=== PATIENT | female | born 1985 | race Caucasian/White ===

== ENCOUNTER 2021-10-28 05:44 | Emergency (ER) | payer MEDICAID ==
[~2021-10-28] VITALS: Ht 170.2 cm; Wt 77.1 kg
--- NOTE | 2021-10-28 05:59 | NUR ---
Patient to ER bed 7 to gown for evaluation. Side rails up. Report given to MYLES CALZADA(AKOSUA).
[2021-10-28 06:00] VITALS: BP_SYST 139
--- NOTE | 2021-10-28 06:07 | NUR ---
-ELSI Brannon. Pt brought self in from home due to R shoulder pain that radiates down to arm. States she has had chronic shoulder pain x1 year, but pain has progressed the past 3 weeks. Denies any injury/trauma to shoulder. Arrived to ED in no acute distress. Breathing adequately on RA.
[2021-10-28] MEDS ORDERED: NAPR-688 PO (06:17)
[2021-10-28] MEDS ORDERED: HYDR-3917 PO (06:17)
--- NOTE | 2021-10-28 06:20 | NUR ---
Pt given Toradol 60 mg via IM and stated her vision went blurry for a few seconds shortly after. Pt was given iced water and placed in position of comfort in bed. VS taken and WNL. Pt was advised to stay a few min longer for observation. Appears in no acute distress. Resting comfortably in bed.
--- NOTE | 2021-10-28 06:20 | NUR ---
ER at bedside examining patient.
[2021-10-28] MEDS ORDERED: KETOROLAC TROMETHAMINE 30 MG VIAL ONE (06:21)
[2021-10-28] MEDS ORDERED: KETOROLAC TROMETHAMINE 60 MG/2 ML VIAL IM ONE (06:30)
--- NOTE | 2021-10-28 06:42 | NUR ---
Pt condition reassessed and denies any blurry vision, lightheadedness/dizziness. Pt was asked if she had someone to drive her home, but states she is fine now and feels safe driving self home. VS reassessed and WNL. Appears in no acute distress. Steady gait noted. Patient given written and verbal discharge instructions and verbalizes understanding. ER MD Michaels discussed with patient the results and treatment provided. Patient in stable condition. ID arm band removed. Rx of [place] and Naproxen sent to pharmacy of choice. Patient educated on pain management and to follow up with PMD. Pain Scale 1/10 Opportunity for questions provided and answered. Medication side effect fact sheet provided.
== END 2021-10-28 06:34 | disposition home or self-care (01) ==
LOC: SED 05:44
DX: M75.01 Adhesive capsulitis of right shoulder (principal); R11.0 Nausea; R19.7 Diarrhea, unspecified; E11.9 Type 2 diabetes mellitus without complications; Z88.0 Allergy status to penicillin
CPT/HCPCS: 96372; 99283; J1885

== ENCOUNTER 2022-11-17 08:07 | Emergency (ER) | payer MEDICAID ==
[~2022-11-17] VITALS: Ht 165.1 cm; Wt 63.5 kg
[~2022-11-17 08:07] MED LIST: HYDR-3917 PO; NAPR-688 PO
--- NOTE | 2022-11-17 08:18 | NUR ---
Pt BIB self. C/O chest tightness. pt states to have started new anxiety medication. Pt states slight SOB. Pt speaking full sentences without labored breathing. Pain 01/25. Pt states HX of hyperthyriodism and DM1. VSS. skin dry and intact. Pt in bed with side rails up.
--- NOTE | 2022-11-17 08:20 | NUR ---
CECIL Oliver performed EKG and glucose check. Glucose 131.
[2022-11-17 08:28] VITALS: BP_SYST 118
--- NOTE | 2022-11-17 08:29 | NUR ---
Pt father Don at bedside.
--- NOTE | 2022-11-17 08:42 | NUR ---
ER at bedside examining patient.
[2022-11-17] MEDS ORDERED: LORazepam 1 MG TABLET PO ONE (08:45)
--- NOTE | 2022-11-17 08:51 | NUR ---
Radiology at bedside with Pt.
[2022-11-17 09:15] LABS: BASOPHILS # (AUTO) 0.1 K/uL (0.0-0.2); BASOPHILS % (AUTO) 0.9 % (0.0-2.0); EOSINOPHILS # (AUTO) 0.1 K/uL (0.0-0.4); EOSINOPHILS % (AUTO) 1.4 % (0.0-4.0); HEMATOCRIT 39.8 % (36-48); HEMOGLOBIN 13.6 g/dL (12.0-16.0); LYMPHOCYTES # (AUTO) 1.3 K/uL (1.0-5.5); LYMPHOCYTES % (AUTO) 18.9 % (20.5-51.5); MEAN CORPUSCULAR HEMOGLOBIN 30 pg (27-31); MEAN CORPUSCULAR HGB CONC 34 % (32-36); MEAN CORPUSCULAR VOLUME 89 fL (79.0-98.0); MONOCYTES # (AUTO) 0.3 K/uL (0.0-1.0); MONOCYTES % (AUTO) 4.7 % (1.7-9.3); NEUTROPHILS % (AUTO) 74.1 % (40.0-70.0); PLATELET COUNT (AUTO) 181 K/uL (130-430); RED BLOOD CELL COUNT(AUTO) 4.46 MIL/uL (4.2-6.2); RED CELL DISTRIBUTION WIDTH 13.1 % (9.0-15.0); WHITE BLOOD COUNT (AUTO) 6.7 K/uL (4.8-10.8)
[2022-11-17 09:21] LABS: ANION GAP 6 (5-15); CALCIUM 8.4 mg/dL (8.4-11.0); CHLORIDE 104 mmol/L (98-107); CREATININE 0.87 mg/dL (0.55-1.30); GFR AFRICAN AMERICAN 94 mL/min (>90); GLUCOSE 141 mg/dL (70-99); UREA NITROGEN, BLOOD 10 mg/dL (8-21)
[2022-11-17 09:29] LABS: ALANINE AMINOTRANSFERASE 15 U/L (12-78); ALBUMIN 3.9 g/dL (3.4-4.8); ASPARTATE AMINOTRANSFERASE 13 U/L (10-37); TOTAL BILIRUBIN 0.4 mg/dL (0.0-1.0)
[2022-11-17] MEDS ORDERED: LORA-259 PO (09:37)
--- NOTE | 2022-11-17 09:45 | NUR ---
Patient given written and verbal discharge instructions and verbalizes understanding. ER MD discussed with patient the results and treatment provided. Patient in stable condition. ID arm band removed. Rx of LORAZAPAM given. Patient educated on pain management and to follow up with PMD. Opportunity for questions provided and answered. Medication side effect fact sheet provided.
[2022-11-17 09:51] VITALS: BP_SYST 114
== END 2022-11-17 09:45 | disposition home or self-care (01) ==
LOC: SED 08:07
DX: R07.9 Chest pain, unspecified (principal); F41.9 Anxiety disorder, unspecified; T50.995A Adverse effect of other drugs, medicaments and biological substances, initial encounter; R00.2 Palpitations; E11.9 Type 2 diabetes mellitus without complications; Z88.0 Allergy status to penicillin; Z79.899 Other long term (current) drug therapy
CPT/HCPCS: 36415; 71045; 80053; 83880; 84484; 85025; 93005; 99285

== ENCOUNTER 2022-12-28 06:42 | Emergency (ER) | payer MEDICAID ==
[~2022-12-28] VITALS: Ht 170.2 cm; Wt 72.6 kg
[~2022-12-28 06:42] MED LIST changes: +LORA-259 PO
[2022-12-28 06:57] VITALS: BP_SYST 117
[2022-12-28 07:24] LABS: BASOPHILS % (AUTO) 0.8 % (0.0-2.0); EOSINOPHILS # (AUTO) 0.1 K/uL (0.0-0.4); EOSINOPHILS % (AUTO) 1.4 % (0.0-4.0); HEMATOCRIT 39.8 % (36-48); HEMOGLOBIN 13.4 g/dL (12.0-16.0); LYMPHOCYTES # (AUTO) 1.1 K/uL (1.0-5.5); MEAN CORPUSCULAR HEMOGLOBIN 31 pg (27-31); MEAN CORPUSCULAR HGB CONC 34 % (32-36); MEAN CORPUSCULAR VOLUME 90 fL (79.0-98.0); MONOCYTES # (AUTO) 0.3 K/uL (0.0-1.0); MONOCYTES % (AUTO) 5.6 % (1.7-9.3); NEUTROPHILS # (AUTO) 4.3 K/uL (1.8-7.7); NEUTROPHILS % (AUTO) 73.2 % (40.0-70.0); PLATELET COUNT (AUTO) 180 K/uL (130-430); RED BLOOD CELL COUNT(AUTO) 4.41 MIL/uL (4.2-6.2); WHITE BLOOD COUNT (AUTO) 5.9 K/uL (4.8-10.8)
[2022-12-28 07:38] LABS: CALCIUM 8.8 mg/dL (8.4-11.0); CREATININE 0.94 mg/dL (0.55-1.30)
[2022-12-28 07:49] LABS: ALBUMIN 4.2 g/dL (3.4-4.8); TOTAL BILIRUBIN 0.6 mg/dL (0.0-1.0)
[2022-12-28 09:22] LABS: BILIRUBIN,URINE NEGATIVE (NEGATIVE); BLOOD, URINE 3+ (NEGATIVE); CLARITY/URINE CLEAR (CLEAR); COLOR,URINE YELLOW (YELLOW); GLUCOSE,URINE NEGATIVE (NEGATIVE); KETONES,URINE 1+ (NEGATIVE); LEUKOCYTE ESTERASE ,URINE NEGATIVE (NEGATIVE); NITRITE, URINE NEGATIVE (NEGATIVE); PROTEIN URINE NEGATIVE (NEGATIVE); UROBILINOGEN,URINE 0.2 (0.2-1.0)
[2022-12-28 09:40] LABS: BACTERIA,URINE RARE /HPF (None Seen); WBC,URINE 0-3 /HPF (0-3)
[2022-12-28 09:42] VITALS: BP_SYST 116
== END 2022-12-28 09:44 | disposition home or self-care (01) ==
LOC: SED 06:42
DX: O20.0 Threatened abortion (principal); N93.9 Abnormal uterine and vaginal bleeding, unspecified; R10.30 Lower abdominal pain, unspecified; E11.9 Type 2 diabetes mellitus without complications; Z88.0 Allergy status to penicillin; Z79.899 Other long term (current) drug therapy
CPT/HCPCS: 36415; 80053; 81000; 81025; 84702; 85025; 87491; 99283